=== PATIENT | female | born 1990 | race Caucasian/White ===

== ENCOUNTER 2020-05-15 19:21 | Emergency (ER) | payer BC, OTHER ==
[~2020-05-15] VITALS: Ht 170.2 cm; Wt 97.9 kg
--- OUTSIDE RECORDS SUMMARY | 2020-05-15 19:31 | XMS REPORT | Continuity of Care Document ---
Author Organization Unknown Address Unknown Phone Unavailable Allergies There is no data. Medications There is no data. Problems There is no data. Procedures There is no data. Results There is no data. Encounters ACCT No. Visit Date/Time Discharge Status Pt. Type Provider Facility Loc./Unit Complaint [id number] 05/15/2020 19:26:[address] Emergency LISA TNEA DO [facility] ER FS LEFT TOE LACERATION
[2020-05-15 19:37] VITALS: BP 126/74
[2020-05-15] MEDS ORDERED: LIDOCAINE 1% INJ 20 ML 20 ML VIAL ONE (19:37)
--- NOTE | 2020-05-15 19:47 | ED Lower Extremity ---
General Chief Complaint: Laceration Stated Complaint: LEFT TOE LACERATION Nursing Triage Note: pt states she caught toe on bed frame in between 4 th and 5 th toe causing laceration Nursing Sepsis Screen: No Definite Risk Source: patient Exam Limitations: no limitations History of Present Illness Date Seen by Provider: May 15, 2020 Time Seen by Provider: 19:35 Initial Comments The patient is a pleasant 29-year-old female who presents for evaluation of a laceration between the left fourth and fifth toes. She states that she was walking and accidentally kicked a bed frame which went in between her toes. There is no active bleeding upon arrival. She is alert and oriented 4, calm, and appears to be in no distress. She states that her tetanus status is up-to-date. Onset: just prior to arrival Severity: mild Method of Injury: incised Allergies and Home Medications Allergies Coded Allergies: cephalexin (Verified Allergy, Unknown, 05/15/20) Patient Home Medication List Home Medication List Reviewed: Yes Review of Systems Constitutional: no symptoms reported EENTM: no symptoms reported Respiratory: no symptoms reported Cardiovascular: no symptoms reported Gastrointestinal: no symptoms reported Genitourinary: no symptoms reported Musculoskeletal: no symptoms reported Skin: other (laceration between the left fourth and fifth toes) Psychiatric/Neurological: No Symptoms Reported All Other Systems Reviewed Negative Unless Noted: Yes Past Cguxlpo-Yqzfzd-Kdjugz Hx Past Med/Social Hx: Reviewed Nursing Past Med/Soc Hx Patient Social History Alcohol Use: Denies Use Recreational Drug Use: No Smoking Status: Never a Smoker 2nd Hand Smoke Exposure: No Recent Foreign Travel: No Contact w/Someone Who Travel: No Recent Infectious Disease Expo: No Recent Hopitalizations: No Physical Abuse: No Sexual Abuse: No Mistreated: No Fear: No Seasonal Allergies Seasonal Allergies: No Past Medical History Surgeries: No Respiratory: No Cardiac: No Neurological: No Genitourinary: No Gastrointestinal: No Musculoskeletal: No Endocrine: No HEENT: No Cancer: No Psychosocial: No Integumentary: No Blood Disorders: No Physical Exam Vital Signs Vital Signs - First Documented 05/15/20 19:37 Temp 36.7 Pulse 82 Resp 16 B/P (MAP) 126/74 (91) Pulse Ox 99 O2 Delivery Room Air Capillary Refill : Less Than 3 Seconds Height, Weight, BMI Height: '" Weight: lbs. oz. kg; 33.00 BMI Method: General Appearance: WD/WN, no apparent distress HEENT: PERRL/EOMI, pharynx normal Cardiovascular: regular rate, rhythm, no JVD, no murmur Respiratory: lungs clear, no respiratory distress, no accessory muscle use Hips: bilateral hip non-tender, bilateral hip normal inspection, bilateral hip normal range of motion, bilateral hip no evidence of injury Legs: bilateral leg non-tender, bilateral leg normal inspection, bilateral leg normal range of motion, bilateral leg no evidence of injury Knees: bilateral knee non-tender, bilateral knee normal inspection, bilateral knee normal range of motion, bilateral knee no evidence of injury Ankles: bilateral ankle non-tender, bilateral ankle normal inspection, bilateral ankle normal range of motion, bilateral ankle no evidence of injury Feet: left foot abrasions/lacerations (between fourth and fifth toes) Neurologic/Psychiatric: vice president pharmacy II-XII nml as tested, no motor/sensory deficits, alert, normal mood/affect, oriented x 3 Skin: normal color, warm/dry Procedures/Interventions Wound Location: Lower Extremities (between left 4th-5th toes) Other Wound Location 2 Wound Length (cm): 4 Wound Explored: clean Irrigated w/ Saline (ccs): 200 Anesthesia: 1% Lidocaine Volume Anesthetic (ccs): 2 Suture: Plain Suture Size: 4-0 Number of Sutures: 2 Layer Closure?: 1 Number Deep Layer Sutures: 0 Sterile Dressing Applied?: Yes Progress The patient tolerated the repair with no immediate complications Progress/Results/Core Measures Results/Orders My Orders Orders - DARINEL GONZALEZ DO Lidocaine 1% Inj 20 Ml (Xylocaine 1% Inj (05/15/20 19:37) Medications Given in ED Current Medications Medications Dose Ordered Sig/Antonio Route Start Time Stop Time Status Last Admin Dose Admin Lidocaine HCl 20 ml STK-MED ONCE .ROUTE 05/15/20 19:37 05/15/20 19:39 DC 05/15/20 19:46 20 ML Vital Signs/I&O 05/15/20 19:37 Temp 36.7 Pulse 82 Resp 16 B/P (MAP) 126/74 (91) Pulse Ox 99 O2 Delivery Room Air Blood Pressure Mean: 91 Progress Progress Note : Progress Note @1999 - the patient tolerated the repair of her laceration. The sutures will need to be removed in 7-10 days. Advised the patient to follow-up with her PCP for wound check in a few days and then to have the sutures removed. She expresses verbal understanding and agreement with the plan and is stable for discharge at this time. Departure Impression Primary Impression: Laceration of left foot Disposition: HOME, SELF-CARE Condition: Stable Departure-Patient Inst. Decision time for Depature: 20:01 Referrals: NO,LOCAL PHYSICIAN (PCP/Family) Primary Care Physician Patient Instructions: Laceration Repair With Stitches (DC) Add. Discharge Instructions: Your sutures will need to be removed in 7-10 days from today. You can follow-up with your doctor or with us to have the sutures removed. Return to the emergency Department immediately for foot redness, concern for infection, new or worsening symptoms. Keep the wound clean and dry. DARINEL GONZALEZ DO May 15, 2020 19:46
== END 2020-05-15 20:07 | disposition home or self-care (01) ==
LOC: ER FS 19:26
DX: S91.312A Laceration without foreign body, left foot, initial encounter (principal); Z88.1 Allergy status to other antibiotic agents; W22.8XXA Striking against or struck by other objects, initial encounter